=== PATIENT | female | born 1945 | race Asian ===

== ENCOUNTER 2018-04-02 21:59 | Inpatient (IN) | payer MEDICARE, MEDICAID ==
[~2018-04-02] VITALS: Ht 165.1 cm; Wt 56.8 kg
[2018-04-02 22:30] VITALS: BP 154/93
[2018-04-02 22:35] LABS: BASOPHILS % (AUTO) 0.9 % (0.0-2.0); EOSINOPHILS % (AUTO) 1.6 % (0.0-3.0); HEMATOCRIT 42.2 % (37.0-47.0); HEMOGLOBIN 14.1 G/DL (12.0-16.0); LYMPHOCYTES % (AUTO) 25.8 % (20.0-45.0); MEAN CORPUSCULAR VOLUME 90 FL (80-99); MONOCYTES % (AUTO) 5.8 % (1.0-10.0); NEUTROPHILS % (AUTO) 65.9 % (45.0-75.0); PLATELET COUNT 180 K/UL (150-450); RED BLOOD COUNT 4.68 M/UL (4.20-5.40); RED CELL DISTRIBUTION WIDTH 12.5 % (11.6-14.8); WHITE BLOOD COUNT 8.2 K/UL (4.8-10.8)
[2018-04-02 22:49] LABS: ANION GAP 9 mmol/L (5-15); BLOOD UREA NITROGEN 21 mg/dL (7-18); CALCIUM 9.9 MG/DL (8.5-10.1); CARBON DIOXIDE 28 MMOL/L (21-32); CHLORIDE 101 MMOL/L (98-107); CREATININE 0.8 MG/DL (0.55-1.30); POTASSIUM 3.3 MMOL/L (3.5-5.1); SODIUM 138 MMOL/L (136-145)
[2018-04-02 23:02] LABS: ALANINE AMINOTRANSFERASE 52 U/L (12-78); ALBUMIN 4.3 G/DL (3.4-5.0); ALKALINE PHOSPHATASE 81 U/L (46-116); ASPARTATE AMINO TRANSFERASE 39 U/L (15-37); BILIRUBIN,TOTAL 0.4 MG/DL (0.2-1.0); CKMB 1.4 NG/ML (0.0-3.6); CREATINE KINASE 95 U/L (26-308)
[2018-04-02 23:30] VITALS: BP 137/65
[2018-04-03] VITALS (8 sets, daily range): BP systolic 98–121; BP diastolic 61–77
--- NOTE | 2018-04-03 00:02 | Emergency Room Report ---
History of Present Illness General Chief Complaint: Generalized Weakness Source: Patient, Family Member, Friend, EMS Present Illness HPI This is a 72-year-old Turkmen speaking female brought in by friends at [employer] for near syncope and weakness. She has a history of high blood pressure and atrophic relation but not on any anticoagulation. She was at [employer] and felt lightheaded. She had several episode vomiting and in the bathroom felt like she cannot pass out. They lay her down and she fell better. She felt weak. Friend says she may have had some slurred speech. Here she said her hand writing is shaky. Never had this problem before. No chest pain. No head injury. Allergies: Coded Allergies: No Known Allergies (Unverified , 04/02/18) Patient History Past Medical History: see triage record, old chart reviewed, HTN, AFib Past Surgical History: other Pertinent Family History: none Social History: Denies: smoking Last Menstrual Period: NA Now: No Immunizations: other Reviewed Nursing Documentation: PMH: Agreed; PSxH: Agreed Nursing Documentation-PMH Hx Diabetes: Yes Review of Systems Constitutional: Reports: weakness Eye: Denies: eye pain, blurred vision ENT: Denies: ear pain, nose congestion, throat swelling Respiratory: Denies: cough, shortness of breath Cardiovascular: Denies: chest pain, palpitations Gastrointestinal: Denies: abdominal pain, diarrhea, nausea, vomiting Musculoskeletal: Denies: back pain, joint pain Skin: Denies: rash Neurological: Denies: headache, numbness Endocrine: Denies: increased thirst, increased urine Hematologic/Lymphatic: Denies: easy bruising All Other Systems: negative except mentioned in HPI Physical Exam Vital Signs Date Time Temp Pulse Resp B/P (MAP) Pulse Ox O2 Delivery O2 Flow Rate FiO2 04/02/18 21:58 97.5 78 18 146/83 96 Room Air 97.5 vitals normal Sp02 EP Interpretation: reviewed, normal General Appearance: well appearing, no apparent distress, alert Head: normocephalic, atraumatic Eyes: bilateral eye PERRL, bilateral eye EOMI ENT: hearing grossly normal, normal pharynx Neck: full range of motion, supple, no meningismus Respiratory: chest non-tender, lungs clear, normal breath sounds Cardiovascular #1: no murmur, irregularly irregular Gastrointestinal: normal bowel sounds, non tender, no mass, no organomegaly, no bruit, non-distended Musculoskeletal: back normal, gait/station normal, normal range of motion Psychiatric: mood/affect normal Skin: warm/dry Medical Decision Making Diagnostic Impression: Primary Impression: Near syncope Additional Impression: Afib Qualified Codes: I48.91 - Unspecified atrial fibrillation ER Course Patient's with vomiting and near syncope. Could be from arrhythmia. Could be from early gastroenteritis. No vomiting here. No evidence of bleed. No obvious CVA on CT scan. Aspirin given here. She remained in A. fib/A flutter but rate is controlled. Blood pressure stable. We'll admit for further workup. I discussed the case with Dr. Jefferson who will admit. Lab Results Impression labs unremarkable EKG Diagnostic Results Rate: normal Rhythm: other - A. fib/flutter ST Segments: other - A. fib ASA given to the pt in ED: Yes Rhythm Strip Diag. Results Rhythm Strip Time: 00:01 EP Interpretation: yes Rate: 64 Rhythm: no PVC's, no ectopy, other - A. fib Chest X-Ray Diagnostic Results Chest X-Ray Diagnostic Results : Chest X-Ray Ordered: Yes # of Views/Limited/Complete: 1 View Indication: Shortness of Breath EP Interpretation: Yes Interpretation: no consolidation, no effusion, no pneumothorax, no acute cardiopulmonary disease Impression: No acute disease Electronically Signed by: Talib Beauchamp MD CT/MRI/US Diagnostic Results CT/MRI/US Diagnostic Results : Imaging Test Ordered: CT head Impression negative per radiologist Last Vital Signs Date Time Temp Pulse Resp B/P (MAP) Pulse Ox O2 Delivery O2 Flow Rate FiO2 04/02/18 21:58 97.5 78 18 146/83 96 Room Air 97.5 Status: improved Disposition: ADMITTED INPATIENT Condition: Serious Referrals: NON PHYSICIAN (PCP) TALIB BEAUCHAMP M.D. April 03, 2018 00:02
[2018-04-03] MEDS: Aspirin Baby 81mg ORAL SCH (08:36)
--- NOTE | 2018-04-03 10:12 | Consultation ---
Consult Note Consult Note asked to eval for abnormal electrolytes This is a 72-year-old Portuguese speaking female brought in by friends at [employer] for near syncope and weakness. She has a history of high blood pressure and atrophic relation but not on any anticoagulation. She was at [employer] and felt lightheaded. She had several episode vomiting and in the bathroom felt like she cannot pass out. They lay her down and she fell better. She felt weak. Friend says she may have had some slurred speech. Here she said her hand writing is shaky. Never had this problem before. No chest pain. No head injury. Hx Diabetes: Yes admitted for Near Syncope At [facility] examined- data reviewed . Assessment/Plan HypoKalemia DM Atfib nearsyncope dehydration Hydrate K supplement pt ot per consultants check JOCELYNE GILLETTE April 03, 2018 10:12
--- NOTE | 2018-04-03 10:49 | Diagnostic Imaging Report ---
Indication: Altered mental status Technique: Contiguous 5 mm thick transaxial imaging of the head obtained in a Siemens Sensation [address] scanner. Soft tissue and bone windows generated. Automatic Exposure Control was utilized. Total Dose length Product (DLP): 1354.[address] Dose Index Volume (CTDIvol): 70.38 mGy Comparison: none Findings: There is mild prominence of the ventricles, basal cisterns, and cerebral sulci consistent with atrophy. Mild, nonspecific, white matter hypoattenuation is noted throughout the brain consistent with chronic small vessel disease. There is no midline shift, edema, acute hemorrhage, mass effect, or abnormal extra-axial fluid collections. Bones and extra osseous soft tissues are unremarkable. Impression: No acute intracranial bleed, mass effect or edema. Mild atrophy of the brain. Nonspecific white matter hypoattenuation probably due to chronic small vessel disease. The CT scanner at [facility] is accredited by the [employer] and the scans are performed using dose optimization techniques as appropriate to a performed exam including Automatic Exposure control.
[2018-04-03 10:58] LABS: APPEARANCE,URINE CLEAR; BILIRUBIN, URINE NEGATIVE (NEGATIVE); COLOR,URINE PALE YELLOW; GLUCOSE, URINE (UA) NEGATIVE (NEGATIVE); KETONES,URINE NEGATIVE (NEGATIVE); LEUKOCYTE ESTERASE ,URINE 1+ (NEGATIVE); NITRITE,URINE NEGATIVE (NEGATIVE); PH,URINE 7 (4.5-8.0); PROTEIN,URINE NEGATIVE (NEGATIVE); UROBILINOGEN,URINE NORMAL MG/DL (0.0-1.0)
--- NOTE | 2018-04-03 11:22 | Diagnostic Imaging Report ---
Indication: Dyspnea Comparison: None A single view chest radiograph was obtained. Findings: Cardiomediastinal appearance is within normal limits for age. Pulmonary vascularity is appropriate. The diaphragmatic contour is smooth and costophrenic angles are sharp. No pleural effusions are identified. The bones are unremarkable. Impression: No acute findings
[2018-04-03] MEDS: NovoLOG Insulin Flexpen SUBQ SCH ×3 (11:30→20:42)
[2018-04-03] MEDS ORDERED: Sodium Chloride 500ML 500 ML IV ONE (11:30)
[2018-04-03 12:00] LABS: ANION GAP 12 mmol/L (5-15); BLOOD UREA NITROGEN 14 mg/dL (7-18); CALCIUM 9.1 MG/DL (8.5-10.1); CARBON DIOXIDE 24 MMOL/L (21-32); CHLORIDE 103 MMOL/L (98-107); CREATININE 0.7 MG/DL (0.55-1.30); POTASSIUM 4.1 MMOL/L (3.5-5.1); SODIUM 139 MMOL/L (136-145)
[2018-04-03 12:12] LABS: ALANINE AMINOTRANSFERASE 43 U/L (12-78); ALBUMIN 3.6 G/DL (3.4-5.0); ALKALINE PHOSPHATASE 72 U/L (46-116); ASPARTATE AMINO TRANSFERASE 30 U/L (15-37); BILIRUBIN,TOTAL 0.6 MG/DL (0.2-1.0); CHOLESTEROL 174 MG/DL (< 200); CREATINE KINASE 84 U/L (26-308); GAMMA GLUTAMYL TRANSPEPTIDASE 89 U/L (5-85); HDL CHOLESTEROL 72 MG/DL (40-60); PHOSPHORUS 4.4 MG/DL (2.5-4.9); TRIGLYCERIDES 42 MG/DL (30-150)
--- NOTE | 2018-04-03 13:30 | Cardiac Electrophysiology PN ---
Subjective Subjective [id number] Objective Last 24 Hour Vital Signs Date Time Temp Pulse Resp B/P (MAP) Pulse Ox O2 Delivery O2 Flow Rate FiO2 04/03/18 08:00 89 04/03/18 08:00 97.3 86 18 106/67 99 97.3 04/03/18 04:00 97.7 64 20 98/61 98 Room Air 97.7 04/03/18 04:00 90 04/03/18 02:31 97.0 106 20 120/73 97 Room Air 04/03/18 01:00 100 04/03/18 01:00 97.3 66 20 114/66 97 Room Air 97.3 04/03/18 00:52 97.0 100 20 114/64 99 Room Air 97.0 04/03/18 00:37 97.0 99 20 120/73 97 Room Air 97.0 04/02/18 23:30 96 17 137/65 99 04/02/18 22:30 97.5 92 19 154/93 99 Room Air 97.5 04/02/18 21:58 97.5 78 18 146/83 96 Room Air 97.5 Intake and Output 04/02/18 04/03/18 19:00 07:00 Intake Total 1160 ml Balance 1160 ml Intake Oral 160 ml IV Total 1000 ml # Voids 1 Laboratory Tests Test 04/02/18 22:20 04/03/18 09:00 04/03/18 09:05 04/03/18 10:10 White Blood Count 8.2 K/UL (4.8-10.8) Red Blood Count 4.68 M/UL (4.20-5.40) Hemoglobin 14.1 G/DL (12.0-16.0) Hematocrit 42.2 % (37.0-47.0) Mean Corpuscular Volume 90 FL (80-99) Mean Corpuscular Hemoglobin 30.1 PG (27.0-31.0) Mean Corpuscular Hemoglobin Concent 33.4 G/DL (32.0-36.0) Red Cell Distribution Width 12.5 % (11.6-14.8) Platelet Count 180 K/UL (150-450) Mean Platelet Volume 8.2 FL (6.5-10.1) Neutrophils (%) (Auto) 65.9 % (45.0-75.0) Lymphocytes (%) (Auto) 25.8 % (20.0-45.0) Monocytes (%) (Auto) 5.8 % (1.0-10.0) Eosinophils (%) (Auto) 1.6 % (0.0-3.0) Basophils (%) (Auto) 0.9 % (0.0-2.0) Prothrombin Time 9.7 SEC (9.30-11.50) Prothromb Time International Ratio 1.0 (0.9-1.1) Activated Partial Thromboplast Time 24 SEC (23-33) Sodium Level 138 MMOL/L (136-145) 139 MMOL/L (136-145) Potassium Level 3.3 MMOL/L (3.5-5.1) L 4.1 MMOL/L (3.5-5.1) Chloride Level 101 MMOL/L (98-107) 103 MMOL/L (98-107) Carbon Dioxide Level 28 MMOL/L (21-32) 24 MMOL/L (21-32) Anion Gap 9 mmol/L (5-15) 12 mmol/L (5-15) Blood Urea Nitrogen 21 mg/dL (7-18) H 14 mg/dL (7-18) Creatinine 0.8 MG/DL (0.55-1.30) 0.7 MG/DL (0.55-1.30) Estimat Glomerular Filtration Rate mL/min (>60) mL/min (>60) Glucose Level 149 MG/DL (74-106) H 193 MG/DL (74-106) H Calcium Level 9.9 MG/DL (8.5-10.1) 9.1 MG/DL (8.5-10.1) Total Bilirubin 0.4 MG/DL (0.2-1.0) 0.6 MG/DL (0.2-1.0) Aspartate Amino Transf (AST/SGOT) 39 U/L (15-37) H 30 U/L (15-37) Alanine Aminotransferase (ALT/SGPT) 52 U/L (12-78) 43 U/L (12-78) Alkaline Phosphatase 81 U/L (46-116) 72 U/L (46-116) Total Creatine Kinase 95 U/L (26-308) 84 U/L (26-308) Creatine Kinase MB 1.4 NG/ML (0.0-3.6) Creatine Kinase MB Relative Index 1.4 Troponin I 0.033 ng/mL (0.000-0.056) 0.025 ng/mL (0.000-0.056) Pro-B-Type Natriuretic Peptide 780 pg/mL (0-125) H Total Protein 8.8 G/DL (6.4-8.2) H 7.2 G/DL (6.4-8.2) Albumin 4.3 G/DL (3.4-5.0) 3.6 G/DL (3.4-5.0) Globulin 4.5 g/dL 3.6 g/dL Albumin/Globulin Ratio 1.0 (1.0-2.7) 1.0 (1.0-2.7) Uric Acid 4.0 MG/DL (2.6-7.2) Phosphorus Level 4.4 MG/DL (2.5-4.9) Magnesium Level 1.9 MG/DL (1.8-2.4) Gamma Glutamyl Transpeptidase 89 U/L (5-85) H Triglycerides Level 42 MG/DL (30-150) Cholesterol Level 174 MG/DL (< 200) LDL Cholesterol 100 mg/dL (<100) HDL Cholesterol 72 MG/DL (40-60) H Cholesterol/HDL Ratio 2.4 (3.3-4.4) L Thyroid Stimulating Hormone (TSH) 3.165 uiU/mL (0.358-3.740) Hemoglobin A1c 6.2 % (4.3-6.0) H Urine Color Pale yellow Urine Appearance Clear Urine pH 7 (4.5-8.0) Urine Specific [place] 1.005 (1.005-1.035) Urine Protein Negative (NEGATIVE) Urine Glucose (UA) Negative (NEGATIVE) Urine Ketones Negative (NEGATIVE) Urine Occult Blood 2+ (NEGATIVE) H Urine Nitrite Negative (NEGATIVE) Urine Bilirubin Negative (NEGATIVE) Urine Urobilinogen Normal MG/DL (0.0-1.0) Urine Leukocyte Esterase 1+ (NEGATIVE) H Urine RBC 2-4 /HPF (0 - 2) H Urine WBC 0-2 /HPF (0 - 2) Urine Squamous Epithelial Cells Occasional /LPF Urine Bacteria Occasional /HPF (NONE) Vicente Berrios MD April 03, 2018 13:30
--- NOTE | 2018-04-03 14:48 | Cardiology Report ---
APPROVED REPORT EXAM: Two-dimensional and M-mode echocardiogram with Doppler and color Doppler. INDICATION Congestive Heart Failure M-Mode DIMENSIONS IVSd1.3 (0.7-1.1cm)Left Atrium (MM)3.7 (1.6-4.0cm) LVDd5.1 (3.5-5.6cm)Aortic Root3.1 (2.0-3.7cm) PWd0.9 (0.7-1.1cm)Aortic Cusp Exc.1.6 (1.5-2.0cm) LVDs3.4 (2.5-4.0cm) PWs1.6 cm Normal left ventricular chamber size, mildly depressed systolic function and wall motion. Left ventricular ejection fraction estimated to be 50%. Borderline mild left ventricular hypertrophy. No evidence of pericardial effusion. Left atrial size at upper limits of normal. Right cardiac chamber sizes are within normal limits. Focal aortic valve sclerosis with adequate cusp excursion. Thickened mitral valve leaflets with normal excursion. Mitral annulus and aortic root calcification. Pulmonic valve not well visualized. Normal tricuspid valve structure. IVC at normal size with physiologic collapse. A color flow and spectral Doppler study was performed and revealed: Trace to mild aortic regurgitation. Moderate mitral regurgitation. Can not determine left ventricular diastolic function based on mitral diastolic velocities due to atrial fibrillation. Mild tricuspid regurgitation. Tricuspid systolic velocities suggests peak right ventricular systolic pressure of 35 mmHg, consistent with borderline mild pulmonary hypertension.
--- NOTE | 2018-04-03 15:22 | Consultation ---
Consult Note Consult Note Job ID [id number] -- thank you for consultation Eleuterio Wyatt MD April 03, 2018 15:22
--- NOTE | 2018-04-03 16:24 | Cardiology Report ---
APPROVED REPORT EKG Measurement Heart [id number] Atrial flutter with variable AV block Abnormal ECG
--- NOTE | 2018-04-03 18:00 | Consultation ---
DATE OF CONSULTATION: 04/03/2018 CARDIOLOGY CONSULTATION CONSULTING PHYSICIAN: Vicente Berrios M.D. REFERRING PHYSICIAN: Olaf Nichols M.D. REASON FOR CONSULTATION: Atrial fibrillation and syncope. HISTORY OF PRESENT ILLNESS: The patient is a 72-year-old French lady with history of hypertension, diabetes, was brought by friend to the emergency room as she had a syncopal episode while she was at the [employer]. The patient had also several episodes of vomiting. The patient's EKG found the patient was in atrial fibrillation with controlled ventricular response. The patient was admitted and Cardiology consultation was obtained for further evaluation. The patient is not have any head injury. REVIEW OF SYSTEMS: Review of systems was negative other than what was mentioned in the history of present illness. PAST MEDICAL HISTORY: 1. Hypertension. 2. Diabetes. 3. The patient denies any prior myocardial infarction or known coronary artery disease or congestive heart failure or atrial fibrillation. FAMILY HISTORY: Noncontributory. SOCIAL HISTORY: She lives at home. Does not smoke or drink alcohol. PHYSICAL EXAMINATION: VITAL SIGNS: Blood pressure is 106/67, pulse 89, respirations 18, and she is afebrile. HEAD AND NECK: No JVD. LUNGS: Clear. CARDIOVASCULAR: Regular S1 and S2 with no gallop or murmur. ABDOMEN: Soft. EXTREMITIES: No pitting edema. LABORATORY AND DIAGNOSTIC DATA: EKG showed atrial fibrillation with ventricular response of 86. Labs show white count of 8.6, hemoglobin 14.1, hematocrit 42.2, and platelet count 180,000. Chemistry shows sodium 139, potassium 4.1, BUN of 14, creatinine 0.7, and glucose of 193. Troponin negative x2. ASSESSMENT AND PLAN: 1. Atrial fibrillation. This is newly diagnosed. The patient was not on anticoagulation. Awaiting neurology clearance prior to proceeding with the anticoagulation. Head CT, however, showed no acute intracranial bleed, mass effect or edema. 2. Syncope, etiology is not clear, could be secondary to bradycardia in view of the patient's atrial fibrillation. We will watch the patient on telemetry, get thyroid function test, and 2D echocardiogram. We will check orthostatic vital signs. 3. History of hypertension, currently off antihypertensives. Blood pressure 100. 4. Diabetes, on insulin. Thank you very much, Dr. Nichols, for allowing me to participate in the care of this patient. Please do not hesitate to contact me for any questions regarding my evaluation. Vicente Berrios M.D. DR: KELLY JOB#: [id number] CC:
--- NOTE | 2018-04-03 19:06 | Consultation ---
History of Present Illness General Date patient seen: April 03, 2018 Chief Complaint: Generalized Weakness Present Illness HPI 72-year-old Persian lady with history of anxiety hypertension, diabetes, was brought by friend to er after she had a syncopal episode while she was at the [employer]. the pt has anxiety and low energy Allergies: Coded Allergies: No Known Allergies (Unverified , 04/02/18) Patient History Limited by: medical condition History Provided By: Patient, Medical Record, PMD Healthcare decision maker Chaka Salinas Resuscitation status Full Code Advanced Directive on File No Past Medical/Surgical History Past Medical/Surgical History: (1) Afib (2) Near syncope Review of Systems Psychiatric: Reports: prior hx, anxiety, depressed feelings, emotional problems Physical Exam General Appearance: WD/WN, no apparent distress, alert Neurologic: oriented x 3, responsive, depressed affect Last 24 Hour Vital Signs Date Time Temp Pulse Resp B/P (MAP) Pulse Ox O2 Delivery O2 Flow Rate FiO2 04/03/18 16:00 97.1 79 20 102/68 98 97.1 04/03/18 16:00 92 04/03/18 12:00 98.1 99 18 121/77 98 98.1 04/03/18 12:00 101 04/03/18 08:00 89 04/03/18 08:00 97.3 86 18 106/67 99 97.3 04/03/18 04:00 97.7 64 20 98/61 98 Room Air 97.7 04/03/18 04:00 90 04/03/18 02:31 97.0 106 20 120/73 97 Room Air 04/03/18 01:00 100 04/03/18 01:00 97.3 66 20 114/66 97 Room Air 97.3 04/03/18 00:52 97.0 100 20 114/64 99 Room Air 97.0 04/03/18 00:37 97.0 99 20 120/73 97 Room Air 97.0 04/02/18 23:30 96 17 137/65 99 04/02/18 22:30 97.5 92 19 154/93 99 Room Air 97.5 04/02/18 21:58 97.5 78 18 146/83 96 Room Air 97.5 Intake and Output 04/02/18 04/03/18 19:00 07:00 Intake Total 1160 ml Balance 1160 ml Intake Oral 160 ml IV Total 1000 ml # Voids 1 Laboratory Tests Test 04/02/18 22:20 04/03/18 09:00 04/03/18 09:05 04/03/18 10:10 White Blood Count 8.2 K/UL (4.8-10.8) Red Blood Count 4.68 M/UL (4.20-5.40) Hemoglobin 14.1 G/DL (12.0-16.0) Hematocrit 42.2 % (37.0-47.0) Mean Corpuscular Volume 90 FL (80-99) Mean Corpuscular Hemoglobin 30.1 PG (27.0-31.0) Mean Corpuscular Hemoglobin Concent 33.4 G/DL (32.0-36.0) Red Cell Distribution Width 12.5 % (11.6-14.8) Platelet Count 180 K/UL (150-450) Mean Platelet Volume 8.2 FL (6.5-10.1) Neutrophils (%) (Auto) 65.9 % (45.0-75.0) Lymphocytes (%) (Auto) 25.8 % (20.0-45.0) Monocytes (%) (Auto) 5.8 % (1.0-10.0) Eosinophils (%) (Auto) 1.6 % (0.0-3.0) Basophils (%) (Auto) 0.9 % (0.0-2.0) Prothrombin Time 9.7 SEC (9.30-11.50) Prothromb Time International Ratio 1.0 (0.9-1.1) Activated Partial Thromboplast Time 24 SEC (23-33) Sodium Level 138 MMOL/L (136-145) 139 MMOL/L (136-145) Potassium Level 3.3 MMOL/L (3.5-5.1) L 4.1 MMOL/L (3.5-5.1) Chloride Level 101 MMOL/L (98-107) 103 MMOL/L (98-107) Carbon Dioxide Level 28 MMOL/L (21-32) 24 MMOL/L (21-32) Anion Gap 9 mmol/L (5-15) 12 mmol/L (5-15) Blood Urea Nitrogen 21 mg/dL (7-18) H 14 mg/dL (7-18) Creatinine 0.8 MG/DL (0.55-1.30) 0.7 MG/DL (0.55-1.30) Estimat Glomerular Filtration Rate mL/min (>60) mL/min (>60) Glucose Level 149 MG/DL (74-106) H 193 MG/DL (74-106) H Calcium Level 9.9 MG/DL (8.5-10.1) 9.1 MG/DL (8.5-10.1) Total Bilirubin 0.4 MG/DL (0.2-1.0) 0.6 MG/DL (0.2-1.0) Aspartate Amino Transf (AST/SGOT) 39 U/L (15-37) H 30 U/L (15-37) Alanine Aminotransferase (ALT/SGPT) 52 U/L (12-78) 43 U/L (12-78) Alkaline Phosphatase 81 U/L (46-116) 72 U/L (46-116) Total Creatine Kinase 95 U/L (26-308) 84 U/L (26-308) Creatine Kinase MB 1.4 NG/ML (0.0-3.6) Creatine Kinase MB Relative Index 1.4 Troponin I 0.033 ng/mL (0.000-0.056) 0.025 ng/mL (0.000-0.056) Pro-B-Type Natriuretic Peptide 780 pg/mL (0-125) H Total Protein 8.8 G/DL (6.4-8.2) H 7.2 G/DL (6.4-8.2) Albumin 4.3 G/DL (3.4-5.0) 3.6 G/DL (3.4-5.0) Globulin 4.5 g/dL 3.6 g/dL Albumin/Globulin Ratio 1.0 (1.0-2.7) 1.0 (1.0-2.7) Pending Uric Acid 4.0 MG/DL (2.6-7.2) Phosphorus Level 4.4 MG/DL (2.5-4.9) Magnesium Level 1.9 MG/DL (1.8-2.4) Gamma Glutamyl Transpeptidase 89 U/L (5-85) H Triglycerides Level 42 MG/DL (30-150) Cholesterol Level 174 MG/DL (< 200) LDL Cholesterol 100 mg/dL (<100) HDL Cholesterol 72 MG/DL (40-60) H Cholesterol/HDL Ratio 2.4 (3.3-4.4) L Thyroid Stimulating Hormone (TSH) 3.165 uiU/mL (0.358-3.740) Hemoglobin A1c 6.2 % (4.3-6.0) H Total Protein (PEP) Pending Albumin (PEP) Pending Globulin (PEP) Pending [id number] Pending [id number] Pending Beta Globulins Pending Beta Gamma Globulin Pending PEP Abnormal Protein Bands Pending Protein Electrophoresis Interpret Pending Urine Color Pale yellow Urine Appearance Clear Urine pH 7 (4.5-8.0) Urine Specific [place] 1.005 (1.005-1.035) Urine Protein Negative (NEGATIVE) Urine Glucose (UA) Negative (NEGATIVE) Urine Ketones Negative (NEGATIVE) Urine Occult Blood 2+ (NEGATIVE) H Urine Nitrite Negative (NEGATIVE) Urine Bilirubin Negative (NEGATIVE) Urine Urobilinogen Normal MG/DL (0.0-1.0) Urine Leukocyte Esterase 1+ (NEGATIVE) H Urine RBC 2-4 /HPF (0 - 2) H Urine WBC 0-2 /HPF (0 - 2) Urine Squamous Epithelial Cells Occasional /LPF Urine Bacteria Occasional /HPF (NONE) Height (Feet): 5 Height (Inches): 5.00 Weight (Pounds): 125 Medications Current Medications Medications (Trade) Dose Ordered Sig/Fermin Route PRN Reason Start Time Stop Time Status Last Admin Dose Admin Acetaminophen (Tylenol) 650 mg Q4H PRN ORAL Mild Pain/Temp > 100.5 04/03/18 01:30 05/03/18 01:29 Aspirin (ASA) 81 mg DAILY ORAL 04/03/18 09:00 05/03/18 08:59 04/03/18 08:36 Dextrose (Dextrose 50%) 25 ml STAT PRN IV Hypoglycemia 04/03/18 07:00 05/03/18 06:59 Dextrose (Dextrose 50%) 50 ml STAT PRN IV Hypoglycemia 04/03/18 07:00 05/03/18 06:59 Insulin Aspart (NovoLOG) BEFORE MEALS AND HS SUBQ 04/03/18 11:30 05/03/18 11:29 04/03/18 17:04 Lansoprazole (Prevacid) 30 mg DAILY ORAL 04/03/18 11:30 05/03/18 11:29 Potassium Chloride (K-Dur) 40 meq TWICE A DAY ORAL 04/03/18 11:30 05/03/18 11:29 04/03/18 17:06 Assessment/Plan Assessment/Plan anxiety d/o Gail Owens M.D. April 03, 2018 19:06
[2018-04-03] MEDS ORDERED: LORazepam 1mg tab ORAL PRN (19:15)
[2018-04-04] VITALS: BP 93/62
[2018-04-04 01:00] VITALS: BP 108/73
--- NOTE | 2018-04-04 03:15 | Consultation ---
DATE OF CONSULTATION: 04/03/2018 NOTE: POOR AUDIO HEMATOLOGY/ONCOLOGY CONSULTATION CONSULTING PHYSICIAN: Eleuterio Wyatt M.D. REQUESTING PHYSICIAN: Olaf Nichols M.D. REASON FOR CONSULTATION: Evaluation of anticoagulation. IDENTIFYING DATA: Dear Dr. Nichols, The patient is a pleasant 72-year-old female with a past medical history, which is significant for near syncope and atrial fibrillation, at this time presents weakness with a history of high blood pressure, atrial fibrillation, has not been on any anticoagulation. Hematology Service as well as Cardiology were consulted. several episodes of nausea and vomiting in the bathroom, has been feeling weak and slurred speech. She has been seen by Neurology as well, and Hematology Service was consulted given anticoagulation concerns. PAST MEDICAL HISTORY: Hypertension . PAST SURGICAL HISTORY: None noted. ALLERGIES: No known drug allergies. FAMILY HISTORY: Noncontributory. SOCIAL HISTORY: No alcohol, tobacco, or illicit drug use. REVIEW OF SYSTEMS: CONSTITUTIONAL: No fever, chills, or night sweats. SKIN: No rashes, bumps, or itching. HEENT: No headache, hearing or vision changes. BREASTS: No lumps, pain, or discharge. PULMONARY: No cough, sputum, or shortness of breath. GASTROINTESTINAL: No nausea, vomiting, or diarrhea. GENITOURINARY: No dysuria, frequency, or urgency. MUSCULOSKELETAL: No joint swelling, muscle pain, or trauma. PHYSICAL EXAMINATION: VITAL SIGNS: Reviewed. GENERAL: No distress. LUNGS: Decreased breath sounds. Some crackles noted. CARDIOVASCULAR: Regular rate. No S3 or S4. ABDOMEN: Soft, nontender, and nondistended. EXTREMITIES: No cyanosis, swelling, or edema. LABORATORY AND DIAGNOSTIC DATA: WBC 8.3, hemoglobin 14, and platelet count 180,000. Chemistry, BUN of 29, creatinine . ASSESSMENT AND RECOMMENDATIONS: 1. Hyperproteinemia. We will send out for serum protein electrophoresis. It does not appear that the patient has any anemia or creatinine dysfunction. Closely monitor for improvement. 2. Atrial fibrillation. Anticoagulation per Cardiology Service. 3. Hypertension, systolic blood pressure goal less than 140. 4. Hypokalemia, potassium. 5. Weakness, fatigue, and recent falls, potentially metabolic. Continue to closely monitor per primary team. Eleuterio Wyatt M.D. DR: EDI JOB#: [id number] CC:
[2018-04-04 04:00] VITALS: BP 99/67
[2018-04-04] MEDS: NovoLOG Insulin Flexpen SUBQ SCH ×3 (06:21→17:29)
[2018-04-04 07:25] LABS: CHOLESTEROL 172 MG/DL (< 200); HDL CHOLESTEROL 61 MG/DL (40-60); TRIGLYCERIDES 44 MG/DL (30-150)
--- NOTE | 2018-04-04 07:44 | General Progress Note ---
Assessment/Plan Assessment/Plan #. Hyperproteinemia. We will send out for serum protein electrophoresis. It does not appear that the patient has any anemia or creatinine dysfunction. Closely monitor for improvement. --> spep, urine protein electrophoresis #. Atrial fibrillation. Anticoagulation per Cardiology Service. --> seen by cardiology, Dr. Berrios, to be seen by neuro #. Hypertension, systolic blood pressure goal less than 140. #. Hypokalemia, repleted with potassium. #. Weakness, fatigue, and recent falls, potentially metabolic. Subjective Date patient seen: April 04, 2018 Constitutional: Denies: no symptoms, chills, diaphoresis, fever, malaise, weakness, other HEENT: Denies: no symptoms, eye pain, blurred vision, tearing, double vision, ear pain, ear discharge, nose pain, nose congestion, throat pain, throat swelling, mouth pain, mouth swelling, other Cardiovascular: Denies: no symptoms, chest pain, edema, irregular heart rate, lightheadedness, palpitations, syncope, other Respiratory: Denies: no symptoms, cough, orthopnea, shortness of breath, SOB with excertion, SOB at rest, sputum, stridor, wheezing, other Gastrointestinal/Abdominal: Denies: no symptoms, abdomen distended, abdominal pain, black stools, tarry stools, blood in stool, constipated, diarrhea, difficulty swallowing, nausea, poor appetite, poor fluid intake, rectal bleeding , vomiting, other Genitourinary: Denies: no symptoms, burning, discharge, frequency, flank pain, hematuria, incontinence, pain, urgency, other Neurologic/Psychiatric: Denies: no symptoms, anxiety, depressed, emotional problems, headache, numbness, paresthesia, pre-existing deficit, seizure, tingling, tremors, weakness, other Endocrine: Denies: no symptoms, excessive sweating, flushing, intolerance to cold, intolerance to heat, increased hunger, increased thirst, increased urine, unexplained weight gain, unexplained weight loss, other Hematologic/Lymphatic: Reports: no symptoms Allergies: Coded Allergies: No Known Allergies (Unverified , 04/02/18) Subjective no evidence of fevers or chills, no anticoagulation Objective Last 24 Hour Vital Signs Date Time Temp Pulse Resp B/P (MAP) Pulse Ox O2 Delivery O2 Flow Rate FiO2 04/04/18 04:00 102 04/04/18 04:00 98.0 60 20 99/67 97 Room Air 98.0 04/04/18 01:00 71 108/73 04/04/18 00:00 101 04/04/18 00:00 98.0 74 20 93/62 97 Room Air 98.0 04/03/18 20:00 98.1 84 21 109/68 98 Room Air 98.1 04/03/18 20:00 96 04/03/18 16:00 97.1 79 20 102/68 98 97.1 04/03/18 16:00 92 04/03/18 12:00 98.1 99 18 121/77 98 98.1 04/03/18 12:00 101 04/03/18 08:00 89 04/03/18 08:00 97.3 86 18 106/67 99 97.3 Intake and Output 04/03/18 04/04/18 19:00 07:00 Intake Total 980 ml Balance 980 ml Intake Oral 480 ml IV Total 500 ml # Voids 3 2 # Bowel Movements 1 Laboratory Tests 04/03/18 09:00: Sodium Level 139, Potassium Level 4.1, Chloride Level 103, Carbon Dioxide Level 24, Anion Gap 12, Blood Urea Nitrogen 14, Creatinine 0.7, Estimat Glomerular Filtration Rate , Glucose Level 193H, Uric Acid 4.0, Calcium Level 9.1, Phosphorus Level 4.4, Magnesium Level 1.9, Total Bilirubin 0.6, Gamma Glutamyl Transpeptidase 89H, Aspartate Amino Transf (AST/SGOT) 30, Alanine Aminotransferase (ALT/SGPT) 43, Alkaline Phosphatase 72, Total Creatine Kinase 84, Total Protein 7.2, Albumin 3.6, Globulin 3.6, Albumin/Globulin Ratio 1.0, Triglycerides Level 42, Cholesterol Level 174, LDL Cholesterol 100, HDL Cholesterol 72H, Cholesterol/HDL Ratio 2.4L, Thyroid Stimulating Hormone (TSH) 3.165 04/03/18 09:05: Albumin/Globulin Ratio [Pending], Hemoglobin A1c 6.2H, Troponin I 0.025, Total Protein (PEP) [Pending], Albumin (PEP) [Pending], Globulin (PEP) [Pending], Ktnpa-2-Fnapsmbsn [Pending], Cpdlg-8-Llmwtgboy [Pending], Beta Globulins [ Pending], Beta Gamma Globulin [Pending], PEP Abnormal Protein Bands [Pending], Protein Electrophoresis Interpret [Pending] 04/03/18 10:10: Urine Color Pale yellow, Urine Appearance Clear, Urine pH 7, Urine Specific [place] 1.005, Urine Protein Negative, Urine Glucose (UA) Negative, Urine Ketones Negative, Urine Occult Blood 2+H, Urine Nitrite Negative, Urine Bilirubin Negative, Urine Urobilinogen Normal, Urine Leukocyte Esterase 1+H, Urine RBC 2-4H, Urine WBC 0-2, Urine Squamous Epithelial Cells Occasional, Urine Bacteria Occasional 04/04/18 06:00: Triglycerides Level 44, Cholesterol Level 172, LDL Cholesterol 99, HDL Cholesterol 61H, Cholesterol/HDL Ratio 2.8L, Thyroid Stimulating Hormone (TSH) 4.034H, Troponin I 0.037, Pro-B-Type Natriuretic Peptide 1802H, Free Thyroxine 1.14 Height (Feet): 5 Height (Inches): 5.00 Weight (Pounds): 125 General Appearance: no apparent distress EENT: normal ENT inspection Neck: normal alignment Cardiovascular: normal rate Respiratory/Chest: lungs clear Abdomen: soft Extremities: non-tender Edema: 1+ Leg (L), 1+ Leg (R) Edema: mild edema Neurologic: no motor/sensory deficits Skin: warm/dry Eleuterio Wyatt MD April 04, 2018 07:44
[2018-04-04] MEDS ORDERED: PRAVASTATIN SOD40 M1 ORAL (07:50)
[2018-04-04] MEDS ORDERED: METFORMIN HCL1000 M1 ORAL (07:51)
[2018-04-04 08:00] VITALS: BP 105/63
[2018-04-04] MEDS: Aspirin Baby 81mg ORAL SCH (08:14)
--- NOTE | 2018-04-04 11:57 | Diagnostic Imaging Report ---
Indication: Slurred speech Technique: The head was imaged in a 1.5 Zenia magnet. Sequences obtained include sagittal and axial T1 FLAIR, axial T2 fast spin echo with fat saturation, axial T2 FLAIR, diffusion and ADC map. Comparison: None 2 areas of diffusion restriction are demonstrated. A 3 cm focus noted in the right cerebellum. A 1.5 cm focus noted in the left cerebellum. Findings consistent with acute CVA. No associated hemorrhage. No associated mass effect on the fourth ventricle. There is a small amount of T1 hypointense/T2 hyperintense edema demonstrated on other sequences. There is a good flow-void (indicative of patency) demonstrated within the basilar artery. Mild, patchy foci of T2 hyperintensity noted within periventricular subcortical white matter tracts within both cerebral hemispheres. There is some motion artifact present. There is minimal atrophy present with prominence of the sulci and ventricles. Empty sella incidentally noted. The corpus callosum is normal. Bone marrow signal is normal. IMPRESSION: Acute cerebellar CVA as described above. No associated hemorrhage. Mild generalized atrophy of the brain. Evidence of chronic small vessel disease involving periventricular/subcortical white matter Critical value communication. Findings were discussed via telephone with Dr. Nichols at 11:50, 04/04/2018 .
[2018-04-04 12:00] VITALS: BP 105/63
--- NOTE | 2018-04-04 13:30 | History and Physical Report ---
DATE OF ADMISSION: 04/02/2018 REASON FOR ADMISSION: The patient is admitted for syncope and atrial fibrillation. HISTORY OF PRESENT ILLNESS: The patient also has been having vomiting one time and also felt palpitations yesterday. The patient has also reported some slurred speech, which is mild. The patient noted to have weakness. Denies diarrhea. Denies abdominal pain. PAST MEDICAL HISTORY: GERD. PAST SURGICAL HISTORY: None. MEDICATIONS: Unknown. SOCIAL HISTORY: Denies history of smoking, alcohol, or illicit drugs. FAMILY HISTORY: Noncontributory. REVIEW OF SYSTEMS: HEENT: Denies headaches. RESPIRATORY: Denies shortness of breath. Denies cough. CARDIOVASCULAR: Denies chest pain or orthopnea. GASTROINTESTINAL: Reports vomiting x1. No abdominal pain. EXTREMITIES: Denies pain. CENTRAL NERVOUS SYSTEM: Reports mild slurred speech and mild right-sided weakness, which have not gotten any worse, and according to the family, slurred speech according to the son at the bedside. PHYSICAL EXAMINATION: VITAL SIGNS: Temperature 97.7, pulse 64, and blood pressure 98/61. HEENT: PERRLA. NECK: Supple. No lymphadenopathy. LUNGS: Clear to auscultation. CARDIOVASCULAR: Irregularly irregular. GASTROINTESTINAL: Soft, nontender, and nondistended. No organomegaly. EXTREMITIES: No edema. Reflexes on both sides. Moves all four extremities. Sensory intact to light touch. CENTRAL NERVOUS SYSTEM: No motor weakness is appreciated, 5/5 overall. Cannot appreciate significant slurred speech. No facial drooping. Cranial nerves II through XII are intact. LABORATORY AND DIAGNOSTIC DATA: WBC of 8.3, hemoglobin 14.1, and platelets 180,000. Sodium 139, potassium 4.1, chloride 103, BUN of 14, creatinine 0.7, glucose 193. Head CT shows no acute intracranial bleed, mass effect, or edema, mild atrophy of the brain, nonspecific white matter hypoattenuation. ASSESSMENT AND PLAN: Vomiting, rule out TSA, atrial fibrillation, and a syncopal episode. For those, I have consulted Dr. Berrios, Dr. Wyatt, and Dr. Atwood for the above-mentioned diagnoses and treatment. Olaf Nichosl M.D. DR: Arlyn JOB#: [id number] CC: ZORAIDA
--- NOTE | 2018-04-04 15:39 | Cardiac Electrophysiology PN ---
Assessment/Plan Status Narrative Normal left ventricular chamber size, mildly depressed systolic function and wall motion. Left ventricular ejection fraction estimated to be 50%. Borderline mild left ventricular hypertrophy. No evidence of pericardial effusion. Left atrial size at upper limits of normal. Right cardiac chamber sizes are within normal limits. Focal aortic valve sclerosis with adequate cusp excursion. Thickened mitral valve leaflets with normal excursion. Mitral annulus and aortic root calcification. Pulmonic valve not well visualized. Normal tricuspid valve structure. IVC at normal size with physiologic collapse. Assessment/Plan 1. Atrial fibrillation. This is newly diagnosed. Converted to SR. The patient was not on anticoagulation. Hold off on anticoagulation in view of acure CVA for risk of hemorrhagic conversion. Head CT showed no acute intracranial bleed, mass effect or edema. MRI brain however showed acute cerebellar CVA. Anticoagulation when OK with neuro. 2. Syncope, could be due to acute CVA. Neuro eval pending. 3. History of hypertension, currently off antihypertensives. 4. Diabetes, on insulin. 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 Awaiting transfer to higher level of care. Subjective Subjective Has slurring of speech. RN at bedside. Arrangements are being made for transfer for an acute stroke facility. MRI brain showed Acute cerebellar CVA.No associated hemorrhage. Objective Last 24 Hour Vital Signs Date Time Temp Pulse Resp B/P (MAP) Pulse Ox O2 Delivery O2 Flow Rate FiO2 04/04/18 12:00 97.5 78 20 105/63 100 Room Air 97.5 04/04/18 08:00 97.2 76 20 105/63 100 Room Air 97.2 04/04/18 04:00 102 04/04/18 04:00 98.0 60 20 99/67 97 Room Air 98.0 04/04/18 01:00 71 108/73 04/04/18 00:00 101 04/04/18 00:00 98.0 74 20 93/62 97 Room Air 98.0 04/03/18 20:00 98.1 84 21 109/68 98 Room Air 98.1 04/03/18 20:00 96 04/03/18 16:00 97.1 79 20 102/68 98 97.1 04/03/18 16:00 92 Intake and Output 04/03/18 04/04/18 19:00 07:00 Intake Total 980 ml Balance 980 ml Intake Oral 480 ml IV Total 500 ml # Voids 3 2 # Bowel Movements 1 Laboratory Tests Test 04/04/18 06:00 Troponin I 0.037 ng/mL (0.000-0.056) Pro-B-Type Natriuretic Peptide 1802 pg/mL (0-125) H Triglycerides Level 44 MG/DL (30-150) Cholesterol Level 172 MG/DL (< 200) LDL Cholesterol 99 mg/dL (<100) HDL Cholesterol 61 MG/DL (40-60) H Cholesterol/HDL Ratio 2.8 (3.3-4.4) L Thyroid Stimulating Hormone (TSH) 4.034 uiU/mL (0.358-3.740) Free Thyroxine 1.14 NG/DL (0.76-1.46) Objective HEAD AND NECK: No JVD. LUNGS: Clear. CARDIOVASCULAR: Regular S1 and S2 with no gallop or murmur. ABDOMEN: Soft. EXTREMITIES: No pitting edema. Vicente Berrios MD April 04, 2018 15:39
[2018-04-04 16:00] VITALS: BP 124/77
--- NOTE | 2018-04-05 11:25 | Discharge Summary ---
Discharge Summary Discharge Summary _ DATE OF ADMISSION: 04/02/2018 DATE OF DISCHARGE: 04/04/2018 CONSULTANTS: Dr. Vicente Weber BRIEF HOSPITAL COURSE: Patient is a 72-year-old female, who presented to ED for generalized weakness. She has history of high blood pressure, and GERD, she was at the religious and felt lightheaded. She had several episodes of vomiting and was about to pass out. She laid down and felt better, however, she felt weak. Friend noted she had some slurring of speech. There was no chest pain, no head injury. On evaluation at ED, blood pressure was stable. EKG was in A. fib/flutter with rate control. There was no vomiting noted, no evidence of bleed. She was given aspirin. Head CT was negative for acute intracranial bleed, mass effect or edema. Blood work showed hypokalemia. She was admitted for evaluation of syncope. She was given IV hydration and potassium supplements. She underwent cardiac evaluation. EKG showed atrial fibrillation with ventricular response of 86. Troponin 2 was negative. Atrial fibrillation was newly diagnosed. Echocardiogram done showed ejection fraction of 50%, trace to mild aortic regurgitation, moderate mitral regurgitation, borderline mild pulmonary hypertension. Thyroid function was normal. LDL was 100, HDL 72. Atrial fibrillation converted to sinus rhythm. Neuro checks were done. She continued to have slurring of speech. Brain MRI showed acute cerebellar CVA. She was given aspirin. She was seen by deicer finisher for evaluation of hyperproteinemia. She was eventually transferred to [facility]. FINAL DIAGNOSES: Acute cerebellar CVA Newly diagnosed atrial fibrillation, converted to sinus rhythm Syncope, could be due to acute CVA Hypertension Hypokalemia Diabetes mellitus Hyperproteinemia Anxiety disorder Dehydration DISPOSITION: Patient was transferred to [facility]. I have been assigned to dictate discharge summary on this account, and I was not involved in the patient's management. Nina Whitmore NP April 05, 2018 11:25
--- NOTE | 2018-04-05 21:15 | Progress Note ---
DATE: 04/04/2018 SUBJECTIVE: The patient is a Sinhala lady who presented with anxiety and agitation. No energy. The patient was compliant with medication and did not have any behavior issues after medically being stable. MENTAL STATUS EXAMINATION: The patient is alert and oriented times self and place. Mood is dysphoric. Affect is constricted, congruent with mood. Thought process is concrete. Thought content, no suicidal or homicidal ideation. ASSESSMENT: Anxiety disorder. PLAN: 1. We will continue the Ativan p.r.n. 2. Provide the patient with reality orientation and supportive therapy. Gail Weber M.D. DR: KOLTON JOB#: [id number] CC:
== END 2018-04-04 18:45 | disposition short-term general hospital (02) | DRG 45 ==
LOC: EDBD 21:59 → EMR 22:15 → 2E 23:09 → EDBEDREQ 04-03 00:25
DX: I63.9 Cerebral infarction, unspecified (principal); E88.09 Other disorders of plasma-protein metabolism, not elsewhere classified; I48.91 Unspecified atrial fibrillation; E11.9 Type 2 diabetes mellitus without complications; E86.0 Dehydration; I10 Essential (primary) hypertension; E87.6 Hypokalemia; F41.8 Other specified anxiety disorders; Z79.4 Long term (current) use of insulin; Z91.81 History of falling
CPT/HCPCS: 36415; 70450; 70551; 71045; 80053; 80061; 81001; 82550; 82553; 82962; 82977; 83036; 83735; 83880; 84100; 84165; 84439; 84443; 84484; 84550; 85025; 85610; 85730; 93005; 93306; 93880; 99285; J1815; J8499